=== PATIENT | male | born 1965 | race Caucasian/White ===

== ENCOUNTER 2019-11-25 16:51 | Emergency (ER) | payer BC ==
[2019-11-25] MEDS ORDERED: Sodium Chloride 0.9% 1,000 ML IV ONE (17:00)
== END 2019-11-25 18:11 | disposition home or self-care (01) ==
LOC: LB.ED 16:51
DX: E11.649 Type 2 diabetes mellitus with hypoglycemia without coma (principal); Z79.4 Long term (current) use of insulin
CPT/HCPCS: 36415; 80053; 83605; 84484; 85025; 86140; 93005; 96360; 99285-25; A0425; A0429; G0480; J7030